=== PATIENT | female | born 1995 | race Caucasian/White ===

== ENCOUNTER 2017-02-22 19:45 | Emergency (ER) | payer MEDICARE, OTHER ==
[2017-02-22] MEDS: SOD CHLORIDE 0.9% 1,000 ML IV (20:18)
[2017-02-22 20:26] LABS: ABNORMAL IP MESSAGE 1; HEMATOCRIT 28.7 % (37.0-47.0); HEMOGLOBIN 9.8 g/dl (12.0-16.0); MEAN CORPUSCULAR HEMOGLOBIN 31.6 pg (29.0-33.0); MEAN CORPUSCULAR HGB CONC 34.1 g/dl (32.0-37.0); MEAN CORPUSCULAR VOLUME 92.6 fl (82.0-101.0); MEAN PLATELET VOLUME 10.2 fl (7.4-10.4); PLATELET COUNT 48 10^3/UL (140-415); RED CELL DISTRIBUTION WIDTH 20.1 % (11.5-14.5)
[2017-02-22 20:30] LABS: POSITIVE DIFF @See below
[2017-02-22 20:31] LABS: ADD MAN DIFF? YES
[2017-02-22 20:38] LABS: ALANINE AMINOTRANSFERASE 62 IU/L (13-69); ALBUMIN 4.6 g/dl (3.3-4.9); ALBUMIN/GLOBULIN RATIO 1.43; ALKALINE PHOSPHATASE 97 IU/L (42-121); ANION GAP 18 (8-16); ASPARTATE AMINO TRANSFERASE 37 IU/L (15-46); BILIRUBIN,INDIRECT 0.3 mg/dl (0-1.1); BILIRUBIN,TOTAL 0.3 mg/dl (0.2-1.3); BLOOD UREA NITROGEN 6 mg/dl (7-20); CALCIUM 9.1 mg/dl (8.4-10.2); CARBON DIOXIDE 24 mmol/L (21-31); CHLORIDE 101 mmol/L (97-110); CREATININE 0.62 mg/dl (0.44-1.00); GLUCOSE 168 mg/dl (70-220); POTASSIUM 3.5 mmol/L (3.5-5.1); SODIUM 139 mmol/L (135-144); TOTAL PROTEIN 7.8 g/dl (6.1-8.1)
[2017-02-22 20:44] LABS: ETHANOL < 10.0 mg/dl
[2017-02-22 20:52] LABS: ANISOCYTOSIS 1+ (0-0); BAND NEUTROPHILS #M 0.4 10^3/ul (0.0-0.6); BAND NEUTROPHILS % (M) 8 % (0-4); BASOPHILS % (M) 1 % (0-2); LYMPHOCYTES #M 0.8 10^3/ul (0.8-2.9); LYMPHOCYTES % (M) 17 % (15-51); MICROCYTOSIS 1+ (0-0); MONOCYTE #M 0.2 10^3/ul (0.3-0.9); MONOCYTES % (M) 4 % (0-11); PLATELET ESTIMATE DECREASED; POIKILOCYTOSIS 1+ (0-0); POLYCHROMASIA 2+ (0-0); SEG NEUT #M 3.5 10^3/ul (1.7-7.5); SEGMENTED NEUTROPHILS (M) % 70 % (39-77); SMUDGE%M 2 % (0-0); TEAR DROP CELLS 1+ (0-0)
[2017-02-22 22:26] LABS: AMPHETAMINE/METHAMPHETAMINE Negative (NEGATIVE); BARBITURATES Negative (NEGATIVE); BENZODIAZEPINES Negative (NEGATIVE); CANNABINOIDS Positive (NEGATIVE); COCAINE Negative (NEGATIVE); OPIATES Negative (NEGATIVE)
[2017-02-24 16:11] LABS: PATH REVIEW CH
== END 2017-02-23 02:05 | disposition home or self-care (01) ==
LOC: E/R 02-23 02:05
DX: T40.7X1A Poisoning by cannabis (derivatives), accidental (unintentional), initial encounter (principal); D64.9 Anemia, unspecified; D69.6 Thrombocytopenia, unspecified; F17.210 Nicotine dependence, cigarettes, uncomplicated; R10.2 Pelvic and perineal pain; Z85.841 Personal history of malignant neoplasm of brain
CPT/HCPCS: 70450; 80053; 80306; 80307; 84703; 85025; 99285-25

== ENCOUNTER 2018-03-03 13:29 | Inpatient (IN) | payer MEDICARE, OTHER ==
[2018-03-03 14:16] LABS: ADD MAN DIFF? NO
[2018-03-03 14:18] LABS: WHITE BLOOD COUNT 9.2 10^3/ul (4.8-10.8)
[2018-03-03 14:18] LABS: BASOPHILS % 0.3 % (0.0-2.0); EOSINOPHILS # 0.1 10^3/ul (0.0-0.5); EOSINOPHILS % 1.2 % (0.0-7.0); HEMATOCRIT 35.7 % (37.0-47.0); HEMOGLOBIN 11.3 g/dl (12.0-16.0); LYMPHOCYTES # 0.7 10^3/ul (0.8-2.9); LYMPHOCYTES % 7.4 % (15.0-51.0); MEAN CORPUSCULAR HGB CONC 31.7 g/dl (32.0-37.0); MEAN CORPUSCULAR VOLUME 91.8 fl (82.0-101.0); MEAN PLATELET VOLUME 10.1 fl (7.4-10.4); MONOCYTE # 0.5 10^3/ul (0.3-0.9); MONOCYTES % 5.7 % (0.0-11.0); NEUTROPHIL # 7.8 10^3/ul (1.6-7.5); PLATELET COUNT 277 10^3/UL (140-415); RED BLOOD COUNT 3.89 10^6/ul (4.20-5.40); RED CELL DISTRIBUTION WIDTH 14.6 % (11.5-14.5)
[2018-03-03] MEDS: SODIUM CHLORIDE 0.9% 1L BAG IV* (14:18)
[2018-03-03] MEDS: ONDANSETRON 4 MG INJ IV (14:18)
[2018-03-03] MEDS: FAMOTIDINE 20 MG INJ IV (14:18)
[2018-03-03] MEDS: IPRATROPIUM (NEB) 0.5 MG/2.5 ML AMP INH (14:19)
[2018-03-03] MEDS: ALBUTEROL 0.5% (NEB) 2.5 MG/0.5 ML AMP INH (14:20)
[2018-03-03 14:22] LABS: INR 1.21; PROTIME 15.4 Sec (11.9-14.9); PT RATIO 1.2
[2018-03-03 14:23] LABS: PARTIAL THROMBOPLASTIN TIME 34.9 Sec (23.0-35.0)
[2018-03-03] MEDS: PIPER-TAZO 3.375 GM IV (PMX) 100 ML IVPB (14:24)
[2018-03-03 14:25] LABS: ALANINE AMINOTRANSFERASE 16 IU/L (13-69); ALBUMIN/GLOBULIN RATIO 1.05; ALKALINE PHOSPHATASE 111 IU/L (42-121); AMYLASE 37 U/L (11-123); ANION GAP 13 (5-13); ASPARTATE AMINO TRANSFERASE 17 IU/L (15-46); BILIRUBIN,INDIRECT 0.2 mg/dl (0-1.1); BILIRUBIN,TOTAL 0.2 mg/dl (0.2-1.3); BLOOD UREA NITROGEN 6 mg/dl (7-20); CALCIUM 9.7 mg/dl (8.4-10.2); CARBON DIOXIDE 27 mmol/L (21-31); CHLORIDE 98 mmol/L (97-110); CREATININE 0.61 mg/dl (0.44-1.00); Estimated GFR > 60 mL/min (>60); GLUCOSE 141 mg/dl (70-220); LIPASE 75 U/L (23-300); POTASSIUM 3.8 mmol/L (3.5-5.1); SODIUM 138 mmol/L (135-144); TOTAL PROTEIN 7.8 g/dl (6.1-8.1)
[2018-03-03 14:37] LABS: TROPONIN-I < 0.012 ng/ml (0.000-0.120)
[2018-03-03 14:46] LABS: AADO2 Arterial 43.6 mmHg (7.0-24.0); Allen Test ACCEPTAB; Arterial Base Excess -1.3 mmol/L (-3.0-3); Arterial Blood Gas Oxygen Sat 91.7 mmHG (95.0-98.0); Arterial COHb 0.2 % (0.0-3.0); Arterial Fraction of Oxyhgb 91.2 % (93.0-99.0); Arterial MetHb 0.3 % (0.0-1.5); MODE ROOM AIR; Site Left Radial
[2018-03-03] MEDS ORDERED: NACL 0.9% 3 ML SYG IV (16:30)
[2018-03-03 17:11] LABS: ADD UMIC YES; UR ASCORBIC ACID NEGATIVE (NEGATIVE); UR BACTERIA FEW /HPF (NONE SEEN); UR BILIRUBIN (Dip) NEGATIVE (NEGATIVE); UR BLOOD (Dip) 2+ mg/dL (NEGATIVE); UR CLARITY SLIGHTLY CLOUDY (CLEAR); UR COLOR YELLOW (YELLOW); UR GLUCOSE (Dip) NEGATIVE (NEGATIVE); UR KETONES (Dip) 1+ mg/dL (NEGATIVE); UR LEUKOCYTE ESTERASE (Dip) NEGATIVE Leu/ul (NEGATIVE); UR NITRITE (Dip) NEGATIVE (NEGATIVE); UR RBC 0 /HPF (0-5); UR SPECIFIC GRAVITY (Dip) 1.014 (1.003-1.030); UR SQUAMOUS EPITHELIAL CELL MODERATE /HPF (FEW); UR TOTAL PROTEIN (Dip) NEGATIVE (NEGATIVE); UR UROBILINOGEN (Dip) NEGATIVE (NEGATIVE); UR WBC 2 /HPF (0-5)
[2018-03-03] MEDS: SOD CHLORIDE 0.45% 1,000 ML IV (17:28)
[2018-03-03] MEDS: DEXAMETHASONE 4 MG/ML 1 ML INJ IV (17:30)
[2018-03-03] MEDS: LEVOFLOXACIN 750MG/D5W (PMX) 150 ML IVPB (17:43)
[2018-03-03] MEDS: IOHEXOL 100 ML (18:04)
[2018-03-03] MEDS: SOD CHLORIDE 0.9% 100 ML (18:04)
[2018-03-03] MEDS: HYDROCODONE/APAP (5/325) TAB PO (20:29)
[2018-03-03] MEDS: HEPARIN 5,000 UNIT/1 ML VIAL SC (20:48)
[2018-03-04] MEDS: SOD CHLORIDE 0.45% 1,000 ML IV (05:49)
[2018-03-04 06:05] LABS: ADD MAN DIFF? NO
[2018-03-04 06:06] LABS: ABNORMAL IP MESSAGE 1; BASOPHILS % 0.2 % (0.0-2.0); EOSINOPHILS % 0.1 % (0.0-7.0); HEMATOCRIT 33.5 % (37.0-47.0); HEMOGLOBIN 10.9 g/dl (12.0-16.0); LYMPHOCYTES # 0.5 10^3/ul (0.8-2.9); LYMPHOCYTES % 5.8 % (15.0-51.0); MEAN CORPUSCULAR HEMOGLOBIN 29.8 pg (29.0-33.0); MEAN CORPUSCULAR HGB CONC 32.5 g/dl (32.0-37.0); MEAN CORPUSCULAR VOLUME 91.5 fl (82.0-101.0); MEAN PLATELET VOLUME 10.1 fl (7.4-10.4); MONOCYTE # 0.6 10^3/ul (0.3-0.9); MONOCYTES % 6.6 % (0.0-11.0); NEUTROPHIL # 7.4 10^3/ul (1.6-7.5); NEUTROPHILS % 87.1 % (39.0-77.0); PLATELET COUNT 225 10^3/UL (140-415); RED BLOOD COUNT 3.66 10^6/ul (4.20-5.40); RED CELL DISTRIBUTION WIDTH 14.4 % (11.5-14.5)
[2018-03-04 06:06] LABS: WHITE BLOOD COUNT 8.5 10^3/ul (4.8-10.8)
[2018-03-04 06:12] LABS: POSITIVE DIFF @See below
[2018-03-04 06:41] LABS: ALANINE AMINOTRANSFERASE 19 IU/L (13-69); ALBUMIN 3.8 g/dl (3.3-4.9); ALBUMIN/GLOBULIN RATIO 1.05; ALKALINE PHOSPHATASE 84 IU/L (42-121); ANION GAP 13 (5-13); ASPARTATE AMINO TRANSFERASE 20 IU/L (15-46); BILIRUBIN,INDIRECT 0.1 mg/dl (0-1.1); BILIRUBIN,TOTAL 0.1 mg/dl (0.2-1.3); BLOOD UREA NITROGEN 5 mg/dl (7-20); CALCIUM 9.8 mg/dl (8.4-10.2); CARBON DIOXIDE 27 mmol/L (21-31); CHLORIDE 100 mmol/L (97-110); CREATININE 0.56 mg/dl (0.44-1.00); Estimated GFR > 60 mL/min (>60); GLUCOSE 101 mg/dl (70-220); POTASSIUM 4.2 mmol/L (3.5-5.1); SODIUM 140 mmol/L (135-144); TOTAL PROTEIN 7.4 g/dl (6.1-8.1)
[2018-03-04 07:17] LABS: HEMOGLOBIN A1C 5.2 % (0-5.9)
[2018-03-04] MEDS: HEPARIN 5,000 UNIT/1 ML VIAL SC ×2 (08:41→20:45)
[2018-03-04] MEDS: DEXAMETHASONE 4 MG/ML 1 ML INJ IV ×3 (09:55→21:37)
[2018-03-04] MEDS: LEVOFLOXACIN 750MG/D5W (PMX) 150 ML IVPB (16:58)
[2018-03-04] MEDS: ALBUTEROL/IPRATROPIUM (NEB) 3 ML AMP HHN (21:31)
[2018-03-05] MEDS: ALBUTEROL/IPRATROPIUM (NEB) 3 ML AMP HHN ×6 (01:21→20:22)
[2018-03-05] MEDS: DEXAMETHASONE 4 MG/ML 1 ML INJ IV (06:02)
[2018-03-05] MEDS: HEPARIN 5,000 UNIT/1 ML VIAL SC ×2 (08:28→20:49)
[2018-03-05] MEDS: POLYETHYLENE GLYCOL 17 GM PACKET PO (14:19)
[2018-03-05] MEDS: LEVOFLOXACIN 750 MG TABLET PO (17:59)
[2018-03-06] MEDS: ALBUTEROL/IPRATROPIUM (NEB) 3 ML AMP HHN ×3 (01:19→09:17)
[2018-03-06] MEDS: LEVOFLOXACIN 750 MG TABLET PO (05:36)
[2018-03-06] MEDS: HEPARIN 5,000 UNIT/1 ML VIAL SC ×2 (08:57→20:22)
[2018-03-06] MEDS ORDERED: ALBUTEROL/IPRATROPIUM (NEB) 3 ML AMP HHN (13:30)
[2018-03-06] MEDS: BISACODYL 10 MG SUPP PR (14:28)
[2018-03-06] MEDS: GUAIFENESIN LA 600 MG TABSR PO ×2 (16:17→23:00)
[2018-03-06] MEDS ORDERED: LORAZEPAM 2 MG INJ IV (17:30)
[2018-03-06] MEDS: SOD CHLORIDE 0.9% 500 ML IV (17:46)
[2018-03-06] MEDS: ONDANSETRON 4 MG INJ IV (17:50)
[2018-03-06] MEDS: AL HYDROX/MG HYDROX/SIMETH 30 ML CUP PO (20:08)
[2018-03-07] MEDS: ONDANSETRON 4 MG INJ IV (01:12)
[2018-03-07] MEDS: LEVOFLOXACIN 750 MG TABLET PO (05:58)
[2018-03-07] MEDS: PANTOPRAZOLE (EC) 40 MG TAB PO (05:58)
[2018-03-07] MEDS: GUAIFENESIN LA 600 MG TABSR PO (09:00)
[2018-03-07] MEDS: HEPARIN 5,000 UNIT/1 ML VIAL SC (11:02)
[2018-03-07] MEDS: BARIUM SULFATE 135 ML (E-Z HD) PO (11:07)
[2018-03-07] MEDS: AL HYDROX/MG HYDROX/SIMETH 30 ML CUP PO (12:12)
== END 2018-03-07 19:30 | disposition home or self-care (01) | DRG 193 ==
LOC: TEL 16:23 → E/R 13:29 → TEL 15:41
DX: J18.9 Pneumonia, unspecified organism (principal); G92 Toxic encephalopathy; C71.7 Malignant neoplasm of brain stem; R09.02 Hypoxemia; R00.0 Tachycardia, unspecified; R11.2 Nausea with vomiting, unspecified; J20.9 Acute bronchitis, unspecified; R27.0 Ataxia, unspecified; R47.1 Dysarthria and anarthria; Z87.891 Personal history of nicotine dependence
CPT/HCPCS: 36415; 36600; 70551; 71045; 71275; 74230; 80053; 81001; 81025; 82150; 82803; 83036; 83605; 83690; 84484; 85025; 85610; 85730; 87040; 87086; 87400; 92610; 92611; 93005; 94640; 94644; 94664; 96374; 96375; 97110; 97162; 97530; 99291-25